=== PATIENT | female | born 1965 | race Caucasian/White ===

== ENCOUNTER 2023-08-14 11:43 | Outpatient (CLI) | payer BC | END 2023-08-14 23:59 | disposition home or self-care (01) | LOC: RAD 11:43 | PROVIDERS: ATTEND Podiatrist Foot & Ankle Surgery | DX: M62.572 Muscle wasting and atrophy, not elsewhere classified, left ankle and foot (principal); M19.072 Primary osteoarthritis, left ankle and foot; M79.89 Other specified soft tissue disorders; M79.672 Pain in left foot; M77.42 Metatarsalgia, left foot; M19.071 Primary osteoarthritis, right ankle and foot; M25.471 Effusion, right ankle; M79.671 Pain in right foot; R60.0 Localized edema | CPT/HCPCS: 73700 ==